=== PATIENT | male | born 1995 | race Two or more races ===

== ENCOUNTER 2024-11-20 14:01 | Emergency (ER) | payer OTHER, SELFPAY ==
[2024-11-20 14:28] VITALS: BMI 27.4
--- NOTE | 2024-11-20 14:58 | PC.NURSE ---
Spoke with Magi at Poison control [phone] in regards to patient ingestion of disposable ice pack. Patient ingestion liquid contents of ice pack approx. 1pm. Monitoring patient for a total of 6hrs from time of incident. N/V, hypotension, salazar to mouth, stomach cramping all could be symptoms that can occur. If ice pack was Nitrate based Hemaglobinemia is possible and there is a antidote for that. Lab orders should be CBC, CMP, Toxicology, Acetaminophen, ASA, and Alcohol. Patient c/o mild stomach discomfort prior to arrival of ED. Provider aware of poison control recommendations. Labs ordered. Will observe until 1900 and provide supportive treatment as needed.
[2024-11-20 15:36] LABS: Basophils % (Auto) 1 % (0-2.5); Eosinophils # (Auto) 0.3 Thou/mm3 (0.0-0.5); Eosinophils % (Auto) 4 % (0-10); Hematocrit 41.9 % (41.0-53.0); Hemoglobin 14.7 g/dL (13.5-16.0); Immature Granulocytes % (Auto) 1 % (0-0); Immature Granulocytes Auto 0.04 Thou/mm3 (0.00-0.00); Lymphocytes # (Auto) 2.7 Thou/mm3 (1.0-4.8); Lymphocytes % (Auto) 35 % (10-50); Mean Corpuscular HGB Conc 35.1 g/dl (31.0-37.0); Mean Corpuscular Hemoglobin 32.2 pg (25.0-35.0); Mean Corpuscular Volume 92 fL (80-100); Monocytes # (Auto) 0.8 Thou/mm3 (0.0-0.8); Monocytes % (Auto) 10 % (0-12); Neutrophils # (Auto) 3.9 Thou/mm3 (1.8-7.7); Neutrophils % (Auto) 50 % (37-80); Nucleated Red Blood Cell % 0 /100 WBC (0); Platelet Count 272 Thou/mm3 (140-440); RDW Standard Deviation 39.7 fL (35.1-43.9); Red Blood Count 4.56 Miln/mm3 (4.50-5.90); White Blood Count 7.8 Thou/mm3 (3.8-10.6)
[2024-11-20 15:53] VITALS: BP 119/82; PULSE 74; RESP 18; TEMP 37; O2SAT 99
[2024-11-20 16:10] LABS: Acetaminophen < 2.0 mcg/mL (10.0-20.0); Alanine Aminotransferase 97 U/L (10-49); Albumin, Serum 4.6 gm/dL (3.5-5.0); Albumin/Globulin Ratio 1.8 (1.2-2.2); Alcohol, Blood Medical < 3.0 mg/dL (0-10.0); Alkaline Phosphatase 53 U/L (46-116); Anion Gap 0 (7-16); Aspartate Amino Transferase 35 U/L (0-34); BUN/Creatinine Ratio 19 Ratio (12-20); Bilirubin,Total 0.3 mg/dL (0.3-1.2); Blood Urea Nitrogen 15 mg/dL (9-23); Calcium 9.9 mg/dL (8.3-10.6); Calcium (Corrected) 9.9 mg/dL (8.5-10.1); Chloride 116 mMol/L (98-107); Creatinine (Component) 0.8 mg/dL (0.6-1.3); Estimated Creatinine Clearance 135.6 mL/min (>60); Globulin 2.6 gm/dL (2.3-3.5); Glucose 89 mg/dL (74-106); Osmolality,Calculated 282 (275-295); Potassium 4.7 mMol/L (3.4-5.1); Sodium 142 mMol/L (136-145); Total Protein 7.2 gm/dL (5.7-8.2); eGFR > 60 See Note
[2024-11-20 17:34] VITALS: BP 123/82; PULSE 73; RESP 18; TEMP 36.8; O2SAT 99
--- NOTE | 2024-11-20 17:36 | EDRME_ITS ---
Rapid Medical Screening Exam E Arrival date/time: 11/20/24 14:01 29-year-old male with no known medical history presents to the emergency room with a chief complaint of ingesting an ice pack. Patient is from a senior living and states that he opened up 1 of those chemical activating ice packs and drink everything inside. I have greeted and performed a focused initial assessment of this patient. A comprehensive ED assessment and evaluation of the patient, analysis of all test results, and completion of the medical decision making process will be conducted by additional ED providers. Chief Complaint: Skin/Abscess/Foreign Body Time Seen by Provider: 11/20/24 14:25 Vital signs: Vital Signs Temperature 98.6 F 11/20/24 15:53 Pulse Rate 74 11/20/24 15:53 Respiratory Rate 18 11/20/24 15:53 Blood Pressure 119/82 11/20/24 15:53 Pulse Oximetry (%) 99 11/20/24 15:53 Oxygen Delivery Method Room Air 11/20/24 15:53 Vital signs reviewed by provider: Yes
--- NOTE | 2024-11-20 17:36 | PC.NURSE ---
Poison control called [facility] ED to follow up on patient's condition. Vitals and labs given. Poison control directed staff to obtain a [facility] lab and if less than 5 patient can be observed for 2 more hours then release, if higher than 5, poison controlled needs to be called back. Provider aware and lab ordered.
[2024-11-20 18:06] LABS: Methemoglobin < 0.4 % (0.4-1.2)
[2024-11-20 18:44] LABS: Salicylate < 3.0 mg/dL
--- NOTE | 2024-11-20 19:36 | EDNOTE_ITS ---
ED General RME/HPI General Chief complaint: Skin/Abscess/Foreign Body Stated complaint: MEDICAL CLEARANCE Time Seen by Provider: 11/20/24 14:25 Arrival date/time: 11/20/24 14:01 Limitations: no limitations RME / HPI RME / HPI narrative: 11/20/24 14:01 29-year-old male with no known medical history presents to the emergency room with a chief complaint of ingesting an ice pack. Patient is from a skilled nursing and states that he opened up 1 of those chemical activating ice packs and drink everything inside. I have greeted and performed a focused initial assessment of this patient. A comprehensive ED assessment and evaluation of the patient, analysis of all test results, and completion of the medical decision making process will be conducted by additional ED providers. DR. MARISCAL MAIN ED EVALUATION: This is a 29-year-old male with no previous mental health history who states today he wanted to get out of the skilled nursing for a little while and decided to drink some of the substance in the ice pack. He states that he was not trying to kill himself but he was just manipulating the system . Initially he told them that he was potentially trying to hurt himself but on my questioning here in the emergency department he told me he was just bored, and when I repeatedly asked him if he was suicidal the patient states that he just wanted to get out of skilled nursing and just manipulate the system. Patient states that a 1 year ago he drank cleaning solution and was hospitalized for 3 days for observation. He said 6 months ago he also drank some type of cleaning solution and was in the hospital. Today he states that he could not find the cleaning solution and decided to drink the ice pack. complaint: Patient ingested ice pack at about 130. Radiation: other (Patient had some abdominal discomfort in the mid abdomen that is now resolved prior to arrival) Severity: mild Severity scale (1-10): 1 Consistency: now resolved Exacerbating factors: none Associated symptoms: denies other symptoms Related Data Allergies Allergy/AdvReac Type Severity Reaction Status Date / Time Penicillins Allergy Unknown Anaphylaxis Verified 11/20/24 14:31 Review of Systems Review of Systems Systems Reviewed: All systems reviewed, normal except as documented Narrative Review of Systems: GEN: No fever, no chills, no weight loss EYES: No discharge, no visual changes, no pain HEENT: No ear pain, no congestion, no sore throat PULM: No shortness of breath, no cough, no congestion CV: No chest pain, no dyspnea on exertion, no palpitations GI: No nausea, no vomiting, no diarrhea, no pain, no constipation : No frequency, no urgency and no dysuria MUSC/SKEL: No joint pain, no back pain SKIN: No rash PSYCH: No hallucinations, no depression, no suicidal ideation (see HPI) HEME/LYMPH: No easy bleeding or bruising tendencies NEURO: No weakness, no headache Past Medical History Past Medical History NEUROLOGIC: Negative Seizures CARDIAC: Negative Congestive Heart Failure RESPIRATORY: Negative Chronic Obstructive Pulmonary Disease (COPD) GENITOURINARY: Negative Renal Disease ENDOCRINE: Negative Diabetes Mellitus Type 1 or Diabetes Mellitus Type 2 PSYCHO/SOCIAL: Positive Psychiatric Problems and Depression OTHER HISTORY: Negative Blood Transfusions (No Previous Blood transfusions), Blood Transfusion Reaction (No Previous Blood transfusions) or Anesthesia Reactions Social History SMOKING STATUS: Unknown if ever smoked ED Exam Narrative Physical exam: Patient is in no acute distress. Sitting in a chair. General Limitations: Present no limitations General appearance: Present alert and in no apparent distress Head Head exam: Present atraumatic Eye Eye exam: Present normal appearance ENT ENT exam: Present normal exam, normal oropharynx and mucous membranes moist Neck Neck exam: Present normal inspection and full ROM Chest Chest inspection: Present normal inspection and symmetric chest wall rise Respiratory Respiratory exam: Present normal lung sounds bilaterally Cardiovascular Cardiovascular exam: Present regular rate, normal rhythm and normal heart sounds Abdominal Exam Abdominal exam: Present soft and normal bowel sounds Extremities Exam Extremities exam: Present normal inspection and full ROM Neurological Exam Neurological exam: Present alert, oriented X3 and CN II-XII intact Psychiatric Psychiatric exam: Present normal affect and normal mood Skin Skin exam: Present warm, dry, intact and normal color Course Course Course Narrative: Patient otherwise has no complaints. No vomiting while here in the emergency department no headache. 1949: Patient is medically cleared. Patient has repeated attempts for self- harm. Cleared for mental health evaluation Quality Measures none Orders Category Date Time Status Acetaminophen Stat Lab 11/20/24 15:14 Completed Alcohol, Blood Medical Stat Lab 11/20/24 15:14 Completed CBC Stat Lab 11/20/24 15:14 Completed CMP [Comprehensive Metabolic Panel] Stat Lab 11/20/24 15:14 Completed Drug Screen,Urine Stat Lab 11/20/24 14:56 Ordered Methemoglobin Stat Lab 11/20/24 17:55 Completed Salicylate Stat Lab 11/20/24 17:55 Completed Vital Signs Vital signs: Vital Signs Temperature 98.6 F 11/20/24 15:53 Pulse Rate 74 11/20/24 15:53 Respiratory Rate 18 11/20/24 15:53 Blood Pressure 119/82 11/20/24 15:53 Pulse Oximetry (%) 99 11/20/24 15:53 Oxygen Delivery Method Room Air 11/20/24 15:53 [facility] Patient data External records reviewed:: [facility] previous records (Reviewed last ED visit dated 12/23/23, discharged with the following: Ingestion of corrosive chemical) Clinical information provided by:: patient and law enforcement Social determinants that could affect healthcare access:: none Patient has the following chronic illnesses:: Denies any PMHx, surgeries, daily medications, or known allergies. How is presenting disease/condition affected by chronic disease/condition?: no chronic disease Evaluation data The following diagnostics were reviewed and interpreted by me:: lab results Lab and/or radiology exams considered but not ordered:: none Interpretation Summary: no acute findings Medications Medications considered but not ordered:: none Medication administrations:: none Consultations Consultation(s) initiated? (list below): No Diagnosis Differential Diagnosis ED Complaint MDM: aspiration, headache, nausea, vomiting Most likely diagnosis given after review of the tests above:: Ingestion of unknown nonmedical substance Suicide and self-inflicted injury Admission Indicated Admission indicated?: not indicated Explain why admission is indicated or not indicated:: Patient has no emergent abnormalities on his studies and can be managed on an outpatient basis. Admission Request Was there a request for admission?: No Disposition Plan Disposition Plan: Discharge Discharge Attestation Discharge Attestation: The patient and all family members were given an opportunity to ask questions and understood the discharge instructions. Discharge instructions specifically effects, indications for sooner follow up or return to the emergency department, and the expected course of current diagnosis. Patient condition: Stable Medical Decision Making [facility] Narrative MDM Narrative: 29-year-old male presenting for observation after eating an ice pack. There is been no symptoms while here in the emergency department. The patient vitals are stable Padmini Lopez, am scribing for and in the presence of Dr. Mariscal. Differential Diagnosis Differential Diagnosis: aspiration, headache, nausea, vomiting Lab Data 11/20/24 15:14 11/20/24 15:14 Labs: Lab Results 11/20/24 11/20/24 Range/Units 15:14 17:55 WBC 7.8 (3.8-10.6) Thou/mm3 RBC 4.56 (4.50-5.90) Miln/mm3 Hgb 14.7 (13.5-16.0) g/dL Hct 41.9 (41.0-53.0) % MCV 92 (80-100) fL MCH 32.2 (25.0-35.0) pg MCHC 35.1 (31.0-37.0) g/dl RDW Std Deviation 39.7 (35.1-43.9) fL Plt Count 272 (140-440) Thou/mm3 Neut % (Auto) 50 (37-80) % Lymph % (Auto) 35 (10-50) % [place] % (Auto) 10 (0-12) % Eos % (Auto) 4 (0-10) % Baso % (Auto) 1 (0-2.5) % Neut # (Auto) 3.9 (1.8-7.7) Thou/mm3 Lymph # (Auto) 2.7 (1.0-4.8) Thou/mm3 [place] # (Auto) 0.8 (0.0-0.8) Thou/mm3 Eos # (Auto) 0.3 (0.0-0.5) Thou/mm3 Baso # (Auto) 0.0 (0.0-0.2) Thou/mm3 Immature Gran # (Auto) 0.04 H (0.00-0.00) Thou/mm3 Absolute Nucleated RBC 0.00 (0.00-0.00) Thou/mm3 Immature Gran % 1 H (0-0) % Nucleated RBC % 0 (0) /100 WBC ABG Methemoglobin < 0.4 L (0.4-1.2) % Sodium 142 (136-145) mMol/L Potassium 4.7 (3.4-5.1) mMol/L Chloride 116 H (98-107) mMol/L Carbon Dioxide 26.0 (20.0-31.0) mMol/L Anion Gap 0 L (7-16) BUN 15 (9-23) mg/dL Creatinine 0.8 (0.6-1.3) mg/dL Estim Creat Clear Calc 135.6 (>60) mL/min eGFR > 60 (60 - ) See Note BUN/Creatinine Ratio 19 (12-20) Ratio Glucose 89 (74-106) mg/dL Calculated Osmolality 282 (275-295) Calcium 9.9 (8.3-10.6) mg/dL Corrected Calcium 9.9 (8.5-10.1) mg/dL Total Bilirubin 0.3 (0.3-1.2) mg/dL AST 35 H (0-34) U/L ALT 97 H (10-49) U/L Alkaline Phosphatase 53 (46-116) U/L Total Protein 7.2 (5.7-8.2) gm/dL Albumin 4.6 (3.5-5.0) gm/dL Globulin 2.6 (2.3-3.5) gm/dL Albumin/Globulin Ratio 1.8 (1.2-2.2) Salicylates < 3.0 mg/dL Acetaminophen < 2.0 L (10.0-20.0) mcg/mL Ethyl Alcohol < 3.0 (0-10.0) mg/dL Discharge Plan Plan Patient Disposition: Long Term/Court/Law Patient condition on transfer: Stable Prescriptions/Referrals Referrals: No Primary/Family,Physician [Primary Care Provider] - In 1 week Problem List Clinical Impression: Ingestion of unknown nonmedicinal substance, Suicide and self-inflicted injury Patient/Caregiver Discharge Instructions Education Materials: First Aid: Poisoning Additional Instructions: Please return to the emergency department for any worsening symptoms, or any other concerns. You are medically cleared and we will allow you to go back to skilled nursing and see the mental health specialist there. You have said that you have done this to manipulate the system so that you can get out of skilled nursing. It was nice meeting you the skilled nursing will need to provide a psychiatric evaluation for you. Print Language: Czech
== END 2024-11-20 22:49 ==
PROVIDERS: Nurse Practitioner Family; Emergency Provider Emergency Medicine
DX: T50.902A Poisoning by unspecified drugs, medicaments and biological substances, intentional self-harm, initial encounter (principal)
CPT/HCPCS: 36415; 80053; 80307; 80320; 80329; 83050; 85025; 99283; G0480